=== PATIENT | female | born 1985 | race Caucasian/White ===

== ENCOUNTER 2017-02-13 09:17 | Day surgery (SDC) | payer OTHER ==
[~2017-02-13] VITALS: Ht 162.6 cm; Wt 80.0 kg
[2017-02-13] VITALS (16 sets, daily range): BP systolic 111–152; BP diastolic 64–80; PULSE 64–96; RESP 12–23; Ht 162.6 cm; Wt 80.0 kg
[~2017-02-13 09:17] MED LIST: CEFAZOLIN 1 GM INJ ONE; FENTAnyl 50 MCG/ML VIAL ONE; MIDAZOLAM 1 MG/ML 2 ML INJ ONE; PRENAT PO; PROPOFOL 20 ML ONE; ROPIVACAINE 0.5 % 30 ML VIAL ONE
[2017-02-13] MEDS ORDERED: ROCURONIUM 50 MG INJ ONE (09:19)
--- NOTE | 2017-02-13 10:35 | HPN ---
Date/Time of Note Date/Time of Note DATE: 02/13/17 TIME: 10:35 Interval H&P Admission Note Pt. seen H&P reviewed: No system changes ZACK WILLIAMSON MD Feb 13, 2017 10:35
[2017-02-13] MEDS ORDERED: ROPIVACAINE 0.5 % 30 ML VIAL ONE (10:50)
[2017-02-13] MEDS ORDERED: BUPIVACAINE 0.5%/EPI (SDV) 30 ML INJ ONE (10:51)
[2017-02-13] MEDS ORDERED: POLYMYXIN/BACITRACIN 1L IRRIG ONE (10:51)
[2017-02-13] MEDS ORDERED: METOCLOPRAMIDE 10 MG INJ ONE (11:45)
[2017-02-13] MEDS ORDERED: ACETAMINOPHEN 1000MG/100ML IV 100 ML ONE (11:45)
[2017-02-13] MEDS ORDERED: DEXAMETHASONE 4 MG/ML 1 ML INJ ONE (11:45)
[2017-02-13] MEDS ORDERED: KETOROLAC 30 MG INJ ONE (11:45)
[2017-02-13] MEDS ORDERED: ONDANSETRON 4 MG INJ ONE (11:45)
[2017-02-13] MEDS ORDERED: FENTAnyl 50 MCG/ML VIAL ONE ×2 (11:48→12:20)
[2017-02-13] MEDS ORDERED: PROPOFOL 20 ML ONE (12:19)
[2017-02-13] MEDS ORDERED: MIDAZOLAM 1 MG/ML 2 ML INJ ONE (12:19)
[2017-02-13] MEDS ORDERED: HYDROmorphONE (0.2 MG/ML) 10ML SYG IV PRN ×3 (12:30)
[2017-02-13] MEDS ORDERED: LABETALOL HCL 20MG INJ IV PRN (12:30)
[2017-02-13] MEDS ORDERED: HYDROCODONE/APAP (5/325) TAB PO PRN (12:30)
[2017-02-13] MEDS ORDERED: hydrALAzine 20 MG INJ IV PRN (12:30)
[2017-02-13] MEDS ORDERED: DIPHENHYDRAMINE 50 MG INJ IV PRN (12:30)
[2017-02-13] MEDS ORDERED: METOCLOPRAMIDE 10 MG INJ IV PRN (12:30)
[2017-02-13] MEDS ORDERED: EPHEDrine SULFATE 50 MG/5 ML SYG IV PRN (12:30)
[2017-02-13] MEDS ORDERED: ONDANSETRON 4 MG INJ IV PRN (12:30)
[2017-02-13] MEDS ORDERED: HYDROCODONE/APAP (10/325) TAB PO PRN (12:30)
[2017-02-13] MEDS ORDERED: OXYCODONE/ACETAMINOPHEN (5/325) TAB PO PRN ×2 (12:30)
[2017-02-13] MEDS ORDERED: MEPERIDINE 25 MG INJ IV PRN (12:30)
[2017-02-13] MEDS ORDERED: morphine (1 MG/ML) 10ML SYRINGE IV PRN ×3 (12:30)
[2017-02-13] MEDS ORDERED: MEPERIDINE 100 MG INJ ONE (12:31)
--- NOTE | 2017-02-13 12:42 | OPR ---
Date/Time of Note Date/Time of Note DATE: 02/13/17 TIME: 12:41 Operative Report Preoperative Diagnosis Right Knee ACL Tear Postoperative Diagnosis Same Operation Performed Right Knee Arthroscopically Assisted ACL Reconstruction Surgeon: ZACK WILLIAMSON MD virtual customer assistant: SINDHU ARCE Anesthesia: general Estimated Blood Loss: minimal Complications: None Pt Condition Post Procedure: stable ZACK WILLIAMSON MD Feb 13, 2017 12:42
--- NOTE | 2017-02-13 13:45 | OPR ---
DATE OF OPERATION: 02/13/2017 PREOPERATIVE DIAGNOSIS: Right knee anterior cruciate ligament tear. POSTOPERATIVE DIAGNOSIS: Right knee anterior cruciate ligament tear. OPERATION PERFORMED: Right knee arthroscopy, anterior cruciate ligament reconstruction using allogr aft tissue. SURGEON: Buddy Alex MD FISH BAILER: GALO Reeder ANESTHESIA: General endotracheal anesthesia with adductor canal block and local anesthesia. OPERATIVE FINDINGS: Full thickness tear of the anterior cruciate ligament with scarring of the liga ment in the notch. INDICATION: Ms. Margie Pollack is a 31-year-old female who sustained a full thickness ACL tear. She has continued to have problems with instability despite doing physical therapy, and now present s for the above listed elective procedure. The risks and benefits were discussed, the risks includi ng but not limited to infection, bleeding, blood clots, retear, knee stiffness, fracture, hardware f ailure, hardware prominence, along with other medical, anesthetic and surgical complications, were d iscussed. Informed consent was obtained. DESCRIPTION OF PROCEDURE: The patient's correct extremity was identified in the preoperative area. She was brought back to the operating room, where she had general endotracheal anesthesia. The rig ht lower extremity was prepped and draped in a standard sterile manner. A time-out was performed. I then used a standard lateral portal incision, introduced the arthroscope and did a diagnostic arth roscopy. The medial and lateral compartments were intact. There was no evidence of a meniscus tear . The articular surfaces were intact. The patellofemoral compartment was intact. The ACL was scar red in the notch with at least scar tissue attachment on the lateral wall. The scarred ACL was debr ided. The lateral wall was cleaned. I did a notchplasty, raising the roof. I then used a tibial A CL guide and made an anterior medial incision, using a tibial ACL guide to make my tibial tunnel, 10 mm. I then used a 2-mm offset guide and put a Beath pin through the femur. I used it to make my fe moral tunnel. At this point the graft which had previously been prepared on the back table and had been stretched was used and passed. I then used an 8 x 23 Arthrex interference screw on the femoral side to fix the graft on the femur side. I then cycled the knee 20 times while applying a posterio r drawer and pulling on the graft. I used a 9 x 28 graft on the tibial side, fully fixing the graft . I had a grade IA Itzel, which is in herrera contrast to a grade IIB Itzel and a positive pivot shift test before beginning the procedure. At this point I put the graft on the articular side. Th ere was no notching in full extension. I then took out all the instruments and let down tourniquet after obtaining adequate hemostasis. The anterior medial incision was closed in layers, with the de eper tissue being closed with 2-0 Vicryl, the subcutaneous tissue with 2-0 Vicryl, the skin with a r unning 4-0 Monocryl. The portal site incisions were also closed with 3-0 Monocryl. Dry sterile dressing was applied. The patient's foot was warm and well perfused at t he end of the case. Dictated By: BUDDY ALEX MD, RA/AUGUSTIN Conf#: [id number] DID#: [id number]
[2017-02-14] MEDS ORDERED: ASPIRIN (EC) 325 MG TAB PO SCH (09:00)
== END 2017-02-13 15:10 | disposition home or self-care (01) ==
LOC: SDS 09:17
PROVIDERS: ATTEND Specialist
DX: S83.511A Sprain of anterior cruciate ligament of right knee, initial encounter (principal); X58.XXXA Exposure to other specified factors, initial encounter; Y93.9 Activity, unspecified; Y99.9 Unspecified external cause status; Y92.9 Unspecified place or not applicable
CPT/HCPCS: 29888; J0131; J0690; J1100; J1885; J2175; J2250; J2405; J2765; J2795; J3010; Z7610; C1762